=== PATIENT | female | born 1990 | race Caucasian/White ===

== ENCOUNTER 2019-03-15 08:15 | Emergency (ER) | payer OTHER, SELFPAY ==
--- NOTE | 2019-03-15 08:35 | HMH.EDGENADL ---
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 The time I documented below is in addition to time spent performing reported procedures but includes the following listed in this critical care notation. Medical Decision Making - Medical Records Medical records reviewed: Yes: I reviewed the patient's medical records. - Kenny Inquiry Pt receiving controlled substance: No Kenny was queried for this patient: No Vital Signs: 03/15/19 08:46 03/15/19 09:19 Temperature 98.6 F Temperature Source Oral Pulse Rate [Left Radial] 95 H 86 Respiratory Rate 18 Blood Pressure [Right Arm] 128/85 145/82 H Blood Pressure Mean [Right Arm] 99 103 Blood Pressure Source [Right Arm] Automatic Cuff Blood Pressure Position [Right Arm] Sitting 02 Sat by Pulse Oximetry 99 99 Oxygen Delivery Method Room Air - Lab Data Lab results reviewed: Yes: I reviewed the patient's lab results. General Adult HPI - General Stated complaint: Blackspot in Vagina and ear ache Time Seen by Provider: 03/15/19 08:35 Mode of Arrival: Ambulatory Source of Information: Patient Limitations: No Limitations - History of Present Illness HPI narrative: bad lower molar on right, ?radiating pain to ear. Also a black spot on my vagina , just noticed it. Doesn't hurt - Related Data Home Medications Medication Instructions Recorded Confirmed Levothyroxine Sodium [Synthroid 175 mcg PO DAILY 05/06/18 09/07/18 175mcg (0.175mg) tablet] Previous Rx's Medication Instructions Recorded Sulfamethoxazole/Trimethoprim 1 each PO BID #14 tablet 09/08/18 [Bactrim DS tablet] cephALEXin [Keflex 500mg Cap] 500 mg PO TID #30 cap 09/08/18 Clindamycin HCl [Clindamycin HCl 300 mg PO Q8 7 Days #21 cap 03/15/19 300mg Cap] Allergies Allergy/AdvReac Type Severity Reaction Status Date / Time codeine Allergy Verified 09/07/18 23:02 [facility] History - Hepatitis A Screen Attestation statement:: This patient has been screened for Hepatitis A risk factors. I have reviewed the patient's past medical history: Yes Medical History: Denies:: Cancer, Diabetes Mellitus Type 1, Diabetes Mellitus Type 2, MRSA Amputation: No Fractures: No - Social History Smoking Status: Current every day smoker Tobacco Type: cigarettes Alcohol Intake: never Substance Use Type: heroin ROS Obtained: Yes All systems reviewed & no additional complaints - Constitutional Constitutional: Denies system reviewed and no additional complaints, except as docu, Denies fever(s) - Eyes Eyes: Denies change in vision, Denies loss of peripheral vision, Denies eye pain - ENT Ears, Nose, Mouth, and Throat: Denies pain with swallowing, Denies sore throat - Cardiovascular Cardiovascular: Denies chest pain, Denies diaphoresis, Denies dyspnea - Respiratory Respiratory: No chest congestion, No cough, No dyspnea on exertion - Gastrointestinal Gastrointestingal: Denies: abdominal pain - Musculoskeletal Musculoskeletal: Denies joint pain, Denies joint stiffness, Denies joint swelling, Denies muscle weakness - Integumentary/Breasts Skin/Breast: Denies skin pain, Reports other (perivaginal discoloration) - Neurologic Neurologic: Denies syncope - Hematologic/Lymphatic Henatologic/Lymphatic: Denies easy bleeding, Denies easy br
--- NOTE | 2019-03-15 08:38 | ED_ITS ---
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 The time I documented below is in addition to time spent performing reported procedures but includes the following listed in this critical care notation. Medical Decision Making - Medical Records Medical records reviewed: Yes: I reviewed the patient's medical records. - Kenny Inquiry Pt receiving controlled substance: No Kenny was queried for this patient: No Vital Signs: 03/15/19 08:46 03/15/19 09:19 Temperature 98.6 F Temperature Source Oral Pulse Rate [Left Radial] 95 H 86 Respiratory Rate 18 Blood Pressure [Right Arm] 128/85 145/82 H Blood Pressure Mean [Right Arm] 99 103 Blood Pressure Source [Right Arm] Automatic Cuff Blood Pressure Position [Right Arm] Sitting 02 Sat by Pulse Oximetry 99 99 Oxygen Delivery Method Room Air - Lab Data Lab results reviewed: Yes: I reviewed the patient's lab results. General Adult HPI - General Stated complaint: Blackspot in Vagina and ear ache Time Seen by Provider: 03/15/19 08:35 Mode of Arrival: Ambulatory Source of Information: Patient Limitations: No Limitations - History of Present Illness HPI narrative: bad lower molar on right, ?radiating pain to ear. Also a black spot on my vagina , just noticed it. Doesn't hurt - Related Data Home Medications Medication Instructions Recorded Confirmed Levothyroxine Sodium [Synthroid 175 mcg PO DAILY 05/06/18 09/07/18 175mcg (0.175mg) tablet] Previous Rx's Medication Instructions Recorded Sulfamethoxazole/Trimethoprim 1 each PO BID #14 tablet 09/08/18 [Bactrim DS tablet] cephALEXin [Keflex 500mg Cap] 500 mg PO TID #30 cap 09/08/18 Clindamycin HCl [Clindamycin HCl 300 mg PO Q8 7 Days #21 cap 03/15/19 300mg Cap] Allergies Allergy/AdvReac Type Severity Reaction Status Date / Time codeine Allergy Verified 09/07/18 23:02 [facility] History - Hepatitis A Screen Attestation statement:: This patient has been screened for Hepatitis A risk factors. I have reviewed the patient's past medical history: Yes Medical History: Denies:: Cancer, Diabetes Mellitus Type 1, Diabetes Mellitus Type 2, MRSA Amputation: No Fractures: No - Social History Smoking Status: Current every day smoker Tobacco Type: cigarettes Alcohol Intake: never Substance Use Type: heroin ROS Obtained: Yes All systems reviewed & no additional complaints - Constitutional Constitutional: Denies system reviewed and no additional complaints, ex
[2019-03-15 08:46] VITALS: BP 128/85; PULSE 95; RESP 18; TEMP 37; O2SAT 99; BMI 28.3
[2019-03-15 09:19] VITALS: BP 145/82; PULSE 86; O2SAT 99
[2019-03-15 09:56] VITALS: BP 119/74; PULSE 78; RESP 16; TEMP 36.6; O2SAT 98
== END 2019-03-15 09:57 | disposition home or self-care (01) ==
PROVIDERS: Emergency Provider Emergency Medicine; PCP Pediatrics
DX: K04.7 Periapical abscess without sinus (principal); N89.8 Other specified noninflammatory disorders of vagina; F17.210 Nicotine dependence, cigarettes, uncomplicated; Z88.5 Allergy status to narcotic agent
CPT/HCPCS: 99282

== ENCOUNTER 2020-02-07 06:25 | Inpatient (IN) | payer OTHER, SELFPAY ==
[2020-02-07] VITALS (7 sets, daily range): BP systolic 105–137; BP diastolic 48–72; PULSE 83–127; RESP 16–19; TEMP 36.6–38.4; O2SAT 94–99; BMI 30.9; BMI 29.9
--- NOTE | 2020-02-07 | ECG_ITS ---
APPROVED REPORT Exam: Resting ECG HR:108 bpm ECG Measurements Heart Rate 108 AXES VA 136 P 56 QRSd 82 QRS 44 QT 330 T 35 QTc 442 <Conclusion> Sinus tachycardia Otherwise normal ECG Electronically signed by : Nate Coley, 02/07/2020 16:51:44
--- NOTE | 2020-02-07 06:30 | PC.NURSE ---
ESCORTED PATIENT TO ROOM VIA W/C. PT WITH MASK ON. STAFF WITH APPROPRIATE PPE ON AT ALL TIMES.
--- NOTE | 2020-02-07 06:44 | XR_ITS ---
PROCEDURE: XR CHEST 2V CLINICAL HISTORY: COUGH Cough, fever, body aches COMPARISON: No exams were available for comparison FINDINGS: The cardiomediastinal silhouette and pulmonary vascularity are within normal limits. The lungs are clear without infiltrates, suspicious nodules, or pleural effusions. No acute bony abnormalities. IMPRESSION: No acute findings. Dictated by: Perry Samuel MD 02/07/2020 08:10 Electronically signed by Perry Samuel MD in [place] 02/07/2020 08:10
--- NOTE | 2020-02-07 06:54 | PC.NURSE ---
URINE SENT TO LAB
--- NOTE | 2020-02-07 06:55 | PC.NURSE ---
CALL LIGHT IN PLACE TO RT GALLARDO
--- NOTE | 2020-02-07 06:57 | HMH.EDFEV ---
ED Disposition Clinical Impression: Febrile illness, acute, SIRS (systemic inflammatory response syndrome), IVDU (intravenous drug user) Disposition: Admitted as Observation Condition on Discharge: Good Referrals: Victoriano Flores [Primary Care Provider] - - Critical Care Critical Care Time: No Attestation: On 02/07/20, the high probability of a clinically significant, sudden or life threatening deterioration of the following system(s) required my full and direct attention, intervention and personal management. The time I documented below is in addition to time spent performing reported procedures but includes the following listed in this critical care notation. Medical Decision Making - Medical Records Medical records reviewed: Yes: I reviewed the patient's medical records. - Kenny Inquiry Pt receiving controlled substance: No Vital Signs: 02/07/20 06:37 02/07/20 07:28 02/07/20 08:49 Temperature 99.6 F 101.1 F H 99.2 F Temperature Source Oral Oral Oral Pulse Rate [Right Brachial] 83 127 H 105 H Respiratory Rate 19 Blood Pressure [Right Arm] 137/72 132/72 105/48 L Blood Pressure Mean [Right Arm] 93 92 67 Blood Pressure Source [Right Arm] Automatic Cuff Automatic Cuff Automatic Cuff Blood Pressure Position [Right Arm] Sitting Sitting Sitting 02 Sat by Pulse Oximetry 98 94 L 96 Oxygen Delivery Method Room Air Room Air Room Air - Lab Data Lab results reviewed: Yes: I reviewed the patient's lab results. Lab Results 02/07/20 06:35: Urine Color Yellow, Urine Appearance Clear, Urine pH 7.5, Ur Specific [place] 1.010, Urine Protein Negative, Urine Glucose (UA) Negative, Urine Ketones Negative, Urine Blood Trace-l, Urine Nitrate Negative, Urine Bilirubin Negative, Urine Urobilinogen 0.2, Ur Leukocyte Esterase Negative, Urine RBC 5-10, Urine WBC 5-10, Ur Squamous Epith Cells 10-20, Urine Bacteria Trace 02/07/20 06:35: WBC 11.1 H, RBC 4.20, Hgb 9.2 L, Hct 30.0 L, MCV 71.4 L, MCH 22.0 L, MCHC 30.8 L, RDW 15.7, Plt Count 404, MPV 7.7, Neut % (Auto) 71.8, Lymph % (Auto) 19.1, [place] % (Auto) 6.8, Eos % (Auto) 1.5, Baso % (Auto) 0.8, Neut # (Auto) 8.0 H, Lymph # (Auto) 2.1, [place] # (Auto) 0.8, Eos # (Auto) 0.2, Baso # (Auto) 0.1 02/07/20 06:35: Sodium 134 L, Potassium 4.1, Chloride 97 L, Carbon Dioxide 27, Anion Gap 14.1, BUN 8, Creatinine 0.60, Estimated Creat Clear 175, Estimated GFR 117, Est GFR ( Amer) 141, Glucose 108 H, Calcium 8.9, Total Bilirubin 0.3, AST 21, ALT 8 L, Alkaline Phosphatase 89, Total Protein 8.1, Albumin 4.0, Globulin 4.1 H, Albumin/Globulin Ratio 1.0 L 02/07/20 06:35: Lactate 0.7 02/07/20 06:35: Influenza Type A Ag Negative, Influenza Type B Ag Negative 02/07/20 06:35: Group A Strep Rapid Negative 02/07/20 06:35: ESR 117 H 02/07/20 06:35: C-Reactive Protein 114.3 H 02/07/20 06:55: Urine HCG, Qual Negative 02/07/20 06:55: Urine Opiates Screen Negative, Urine Methadone Screen Negative, Ur Barbituates Screen Negative, Ur Phencyclidine Scrn Negative, Ur Amphetamines Screen Negative, U Benzodiazepines Scrn Negative, Urine Cocaine Screen Negative, U Marijuana (THC) Screen Negative Result diagrams: 02/07/20 06:35 02/07/20 06:35 Orders (Tests/Meds): ED MEDICATIONS Generic Name Dose Route Start Last Admin Trade Name Freq PRN Reason Stop Dose Admin Ceftriaxone Sodium 2 gm/ 100 mls @ 200 mls/hr 02/07/20 08:15 02/07/20 08:56 Sodium Chloride IV 02/21/20 08:14 200 mls/hr Q24H NICHOLAS Administration Protocol Vancomycin HCl 1,500 mg/ 250 mls @ 125 mls/hr 02/07/20 09:00 Sodium Chloride IV 02/07/20 10:59 ONCE ONE Discontinued Medications Generic Name Dose Route Start Last Admin Trade Name Freq PRN Reason Stop Dose Admin Acetaminophen 975 mg 02/07/20 07:38 02/07/20 07:39 Acetaminophen 325mg Tab PO 02/07/20 07:39 975 mg ONCE ONE Administration Sodium Chloride 1,000 mls @ 999 mls/hr 02/07/20 07:00 02/07/20 06:56 Sod Chlor 0.9% 1000ml Bag IV 02/07/20 08:00 999
[2020-02-07 06:58] LABS: Appearance,Urine CLEAR (Clear); Bilirubin,Urine Negative (Negative); Blood, Urine TRACE-L (Negative); Color,Urine YELLOW (Yellow); Glucose,Urine (UA) Negative (Negative); Ketones,Urine Negative (Negative); Leukocyte Esterase,Urine Negative (Negative); Nitrate,Urine Negative (Negative); PH,Urine 7.5 (5.0-8.5); Protein,Urine Negative (Negative); Urobilinogen,Urine 0.2 EU/dl (0.2)
[2020-02-07 06:59] LABS: Microscopic, Urine URINE MICROSCOPIC (MICROSCOPIC)
[2020-02-07 07:00] LABS: Urine Pregnancy, HCG Qual. Negative (Negative)
[2020-02-07 07:00] LABS: Basophils # 0.1 K/mm3 (0-0.2); Basophils % 0.8 % (0.1-2.0); Eosinophils # 0.2 K/mm3 (0.0-0.4); Eosinophils % 1.5 % (0.1-12.0); Hemoglobin 9.2 g/dL (12.2-16.2); Lymphocytes # 2.1 K/mm3 (0.7-4.5); Lymphocytes % 19.1 % (10-50); Mean Corpuscular HGB Conc 30.8 g/dL (31.8-35.4); Mean Corpuscular Volume 71.4 fl (81-99); Mean Platelet Volume 7.7 fl (7.4-10.4); Monocytes # 0.8 K/mm3 (0.1-1.0); Monocytes % 6.8 % (1.7-9.3); Neutrophils % 71.8 % (37.0-80.0); Platelet Count 404 K/mm3 (142-424); Red Cell Distribution Width 15.7 % (11.5-17.5); White Blood Count 11.1 K/mm3 (4.8-10.8)
[2020-02-07 07:02] LABS: Chloride 97 mmol/L (98-107); Sodium 134 mmol/L (136-145)
[2020-02-07 07:03] LABS: Potassium 4.1 mmoL/L (3.5-5.1)
[2020-02-07 07:05] LABS: Alanine Aminotransferase 8 U/L (12-78); Anion Gap 14.1 mEq/L (5-15); Aspartate Amino Transferase 21 U/L (14-36); Blood Urea Nitrogen 8 mg/dl (7-17); Carbon Dioxide 27 mmol/L (22.0-30.0); Creatinine Clearance Estimated 175 mL/min (50-200); Estimated Glomerular Filt Rate 117 ml/min (>60); GFR (African American) 141 ML/MIN (>60); Lactic Acid 0.7 mmol/L (0.7-2.1)
[2020-02-07 07:06] LABS: Alkaline Phosphatase 89 U/L (38-126); Bilirubin,Total 0.3 mg/dl (0.2-1.3); Calcium 8.9 mg/dl (8.4-10.2); Globulin 4.1 g/dL (1.3-3.2); Glucose 108 mg/dl (74-100); Total Protein,Serum 8.1 g/dl (6.3-8.2)
[2020-02-07 07:11] LABS: Strep Scrn Group A (Rapid) Negative (Negative)
[2020-02-07 07:14] LABS: C-Reactive Protein 114.3 mg/L (0-4)
[2020-02-07 07:20] LABS: Bacteria,Urine Trace /lpf
--- NOTE | 2020-02-07 07:25 | PC.NURSE ---
pt c/o sob, chest discomfort under breast, generalized aches.
[2020-02-07 07:26] LABS: Erythrocyte Sedimentation Rate 117 mm/hr (0-20)
[2020-02-07 07:31] LABS: Benzodiazepines Screen,Urine Negative ng/ml (<200)
[2020-02-07 07:32] LABS: Amphetamine/Metha Screen,Urine Negative ng/ml (<1000); Barbiturates Screen,Urine Negative ng/ml (<200)
[2020-02-07 07:33] LABS: Cannabinoid Screen,Urine Negative ng/ml (<50); Methadone Screen,Urine Negative ng/ml (<300)
[2020-02-07 07:34] LABS: Cocaine Screen,Urine Negative ng/ml (<300)
[2020-02-07 07:35] LABS: Opiate Screen,Urine Negative ng/ml (<300); Phencyclidine Screen,Urine Negative ng/ml (<25)
--- NOTE | 2020-02-07 07:40 | CA_ITS ---
APPROVED REPORT EXAM: Comprehensive 2D, Doppler, and color-flow Echocardiogram Manager Personal: Lani Glaser CRT Ht: 5 ft 7 in Wt: 180lbs BSA: 1.93 BP: 137/72 mmHg Indications: IVDU, HEP C, POSSIBLE COVID, SMOKER, SOB 2D Dimensions LVOT 2.16 cm (M/F) 1.5-2.5 M-Mode Dimensions RVDd 2.62 cm (0.9-2.6) LVDd 5.13 cm (3.5-5.7) LVDs 3.92 cm (3.5-5.7) IVSd 1.32 cm (0.6-1.1) PWd 0.70 cm (0.6-1.1) EF (Teich) 46.90% FS 23.60% EDV (Teich) 125.50 mL ESV (Teich) 66.70 mL Left Ventricle Left atrium is normal size, left ventricle is normal size, there is no concentric left ventricular hypertrophy, visually estimated ejection fraction 55 to 60% with no regional wall motion abnormality. Diastolic parameters are inconclusive. Right Ventricle Right atrium is normal size, right ventricle is mildly enlarged with normal contractility. Aortic Valve Aortic valve is minimally thickened and fibrosed. There is no aortic stenosis aortic insufficiency. Mitral Valve Mitral valve is grossly normal, there is trace mitral regurgitation. Tricuspid Valve Tricuspid valve grossly normal, there is trace tricuspid regurgitation. Calculated right ventricular systolic pressure is 44 mmHg. Pulmonic Valve Pulmonic valve is poorly visualized. Great Vessels Aortic root is normal size. Pericardium No significant pericardial effusion noted. Conclusion 1. Normal left ventricular size, preserved left ventricular systolic function, visually estimated ejection fraction 55 to 60% with no regional wall motion abnormality, diastolic parameters are inconclusive. 2. Mildly enlarged right ventricle with normal contractility. 3. Trace mitral and tricuspid regurgitation, calculated right ventricular systolic pressure is 44 mmHg. Inferior vena cava is normal size with normal inspiratory collapse 4. No significant pericardial effusion noted. Electronically signed by : James Ackerman, 02/07/2020 11:39:39
--- NOTE | 2020-02-07 07:41 | PC.NURSE ---
Echo lab aware of orders. MD at bedside at this time.
--- NOTE | 2020-02-07 07:46 | PC.NURSE ---
pt informed dr bolton she hugged someone 2 weeks ago who was exposed to someone with covid
--- NOTE | 2020-02-07 07:55 | PC.NURSE ---
Pt up to restroom
--- NOTE | 2020-02-07 07:58 | PC.NURSE ---
Echo Lab at bedside
--- NOTE | 2020-02-07 08:01 | PC.NURSE ---
spoke with Sunitha in pharmacy regarding antibiotics. ok for rocephin 2gms and vanc
--- NOTE | 2020-02-07 09:01 | PC.NURSE ---
attempted to call care management x 3 for admission info. no answer
--- NOTE | 2020-02-07 09:23 | HMH.HP ---
*Admission Date: 02/07/20 *Chief complaint: fever *History of present illness: 29 yr old female presents to ed with c/o of fever. Pt with reported IV drug use in beau hands - last use 1 day ago - she reports fever and achy yolanda hands- no prod cough and no chest pain - reports contact with covid-19 - no vomiting or diarrhea - covid exposure was about 2 weeks ago and consisted of her hugging briefly a healthy person who she later found out was taking care of someone with covid -19. Pt admitted for fever of unknown origin, echo wnl, IV antibiotics and wait for blood culture results. [facility] History I have reviewed the patient's past medical history: Yes Medical History: Reports:: Hepatitis (C) Denies:: Cancer, Diabetes Mellitus Type 1, Diabetes Mellitus Type 2, Internal Pacemaker, MRSA *Have you ever received a pneumonia vaccine?: No *Have you received a flu vaccine this season?: No Other Medical History: Reports: Liver Disease Other Surgeries: Yes: Tubal Ligation. No: Pacemaker Amputation: No Fractures: No - *Social History Smoking Status: Current every day smoker Tobacco Type: e-cigarettes # Packs/Day (cigarettes): 1 Alcohol Intake: never Substance Use Type: heroin, IV drugs *Occupational Status:: other Housing: house *Travel in the last 8 weeks: None Family Hx:: Non-contributory Review of Systems - Review of Systems Review of systems:: pertinent systems reviewed and negative unless documented below - Constitutional Reports fever(s) - Eyes Denies floaters, Denies pain - ENT Denies neck pain, Denies pain with swallowing, Denies post nasal drip, Denies sore throat - *Cardiovascular Denies chest pain at rest, Denies fast heart rate - *Respiratory Denies chest congestion - *Gastrointestinal Denies bloating, Denies nausea, Denies vomiting - *Genitourinary Denies urinary urgency - *Musculoskeletal Reports joint pain - Integumentary/Breasts Denies change in hair, Denies rash - *Neurologic Denies localized weakness, Denies headache(s) - Psychiatric Denies lack of enjoyment - Endocrine Denies excessive sweating - Hematologic/Lymphatic Denies easy bruising - Allergic/Immunologic Denies itchy eyes Meds Home Medications Medication Instructions Recorded Confirmed Type Levothyroxine Sodium [Synthroid 175 mcg PO DAILY 05/06/18 02/07/20 History 175mcg (0.175mg) tablet] Allergies Allergy/AdvReac Type Severity Reaction Status Date / Time codeine Allergy Mild Difficulty Verified 05/09/19 21:17 Swallowing Exam Vital signs and Labs for Last 24 Hours: Temp Pulse Resp BP Pulse Ox 99.2 F 105 H 19 105/48 L 96 02/07/20 08:49 02/07/20 08:49 02/07/20 06:37 02/07/20 08:49 02/07/20 08:49 Laboratory Results - last 24 hr 02/07/20 06:35: Urine Color Yellow, Urine Appearance Clear, Urine pH 7.5, Ur Specific [place] 1.010, Urine Protein Negative, Urine Glucose (UA) Negative, Urine Ketones Negative, Urine Blood Trace-l, Urine Nitrate Negative, Urine Bilirubin Negative, Urine Urobilinogen 0.2, Ur Leukocyte Esterase Negative, Urine RBC 5-10, Urine WBC 5-10, Ur Squamous Epith Cells 10-20, Urine Bacteria Trace 02/07/20 06:35: WBC 11.1 H, RBC 4.20, Hgb 9.2 L, Hct 30.0 L, MCV 71.4 L, MCH 22.0 L, MCHC 30.8 L, RDW 15.7, Plt Count 404, MPV 7.7, Neut % (Auto) 71.8, Lymph % (Auto) 19.1, [place] % (Auto) 6.8, Eos % (Auto) 1.5, Baso % (Auto) 0.8, Neut # (Auto) 8.0 H, Lymph # (Auto) 2.1, [place] # (Auto) 0.8, Eos # (Auto) 0.2, Baso # (Auto) 0.1 02/07/20 06:35: Sodium 134 L, Potassium 4.1, Chloride 97 L, Carbon Dioxide 27, Anion Gap 14.1, BUN 8, Creatinine 0.60, Estimated Creat Clear 175, Estimated GFR 117, Est GFR ( Amer) 141, Glucose 108 H, Calcium 8.9, Total Bilirubin 0.3, AST 21, ALT 8 L, Alkaline Phosphatase 89, Total Protein 8.1, Albumin 4.0, Globulin 4.1 H, Albumin/Globulin Ratio 1.0 L 02/07/20 06:35: Lactate 0.7 02/07/20 06:35: Influenza Type A Ag Negative, Influenza Type B Ag Negative 02/07/20 06
--- NOTE | 2020-02-07 09:32 | PC.NURSE ---
pt c/o rt knee pain and swelling x 3 days progressively getting worse. pt denies injury, no redness noted. pt states having difficulty with weight bearing rt leg due to pain.
--- NOTE | 2020-02-07 09:52 | XR_ITS ---
PROCEDURE: XR KNEE LT 3V CLINICAL INDICATION: pain, swelling, fever The the COMPARISON: No exams were available for comparison FINDINGS: No fracture or dislocation. No lytic or blastic change. There is normal mineralization. There is minimal spurring of the medial compartment. The joint spaces are well preserved. Other findings:None. IMPRESSION: Minimal spurring medial compartment suggesting minimal osteoarthritic change Dictated by: Perry Samuel MD 02/07/2020 11:21 Electronically signed by Perry Samuel MD in [place] 02/07/2020 11:21
--- NOTE | 2020-02-07 09:55 | PC.NURSE ---
Rad at bedside
--- NOTE | 2020-02-07 09:56 | P.CONPHA_ITS ---
[facility] Pharmacy VTE Monitoring - Patient Demographics Admission date: 02/07/20 Report Date: 02/07/20 Time: 09:56 Allergies/Adverse Reactions: Patient Allergies codeine Allergy (Mild, Verified 05/09/19 21:17) Difficulty Swallowing Height: 1.63 m Weight: 81.647 kg Patient Problems: Current Active Problems IVDU (intravenous drug user) (Acute) Febrile illness, acute (Acute) SIRS (systemic inflammatory response syndrome) (Acute) - VTE Risk Labs: VTE Related Lab Results Hgb 9.2 g/dL (12.2-16.2) L 02/07/20 06:35 Hct 30.0 % (37.0-47.0) L 02/07/20 06:35 Plt Count 404 K/mm3 (142-424) 02/07/20 06:35 BUN 8 mg/dl (7-17) 02/07/20 06:35 Creatinine 0.60 mg/dl (0.52-1.04) 02/07/20 06:35 Estimated Creat Clear 175 mL/min (50-200) 02/07/20 06:35 - Prophylaxis VTE Prophylaxis Ordered?: Yes Types of VTE Prophylaxis: TEDS Knee High Location of Applied Device: Bilateral Lower Extremeties - VTE Diagnosis Confirmed Treatment or plan recommended: Continue Current Treatment
--- NOTE | 2020-02-07 10:00 | PC.NURSE ---
report called to floor
--- NOTE | 2020-02-07 10:03 | HMH.PHAINT ---
MEDICATION RECONCILIATION COMPLETED ON PATIENT USING EXTERNAL FILL HISTORY FROM PHARMACY. -HANNAH GOMES, JOELD
--- NOTE | 2020-02-07 10:51 | P.CONPHA_ITS ---
- Pharmacy Consult Date: 02/07/20 Time: 10:51 Referring provider: DR. MACHADO Reason for Consult:: VANCOMYCIN DOSING Allergies and ADEs:: Allergies Allergy/AdvReac Type Severity Reaction Status Date / Time codeine Allergy Mild Difficulty Verified 05/09/19 21:17 Swallowing Home Medications:: Home Medications Medication Instructions Recorded Confirmed Type Levothyroxine Sodium [Synthroid 175 mcg PO DAILY 05/06/18 02/07/20 History 175mcg (0.175mg) tablet] Height: 1.63 m Weight: 78.982 kg Laboratory Results:: Laboratory Results - last 24 hr 02/07/20 06:35: Urine Color Yellow, Urine Appearance Clear, Urine pH 7.5, Ur Specific [place] 1.010, Urine Protein Negative, Urine Glucose (UA) Negative, Urine Ketones Negative, Urine Blood Trace-l, Urine Nitrate Negative, Urine Bilirubin Negative, Urine Urobilinogen 0.2, Ur Leukocyte Esterase Negative, Urine RBC 5-10, Urine WBC 5-10, Ur Squamous Epith Cells 10-20, Urine Bacteria Trace 02/07/20 06:35: WBC 11.1 H, RBC 4.20, Hgb 9.2 L, Hct 30.0 L, MCV 71.4 L, MCH 22.0 L, MCHC 30.8 L, RDW 15.7, Plt Count 404, MPV 7.7, Neut % (Auto) 71.8, Lymph % (Auto) 19.1, [place] % (Auto) 6.8, Eos % (Auto) 1.5, Baso % (Auto) 0.8, Neut # (Auto) 8.0 H, Lymph # (Auto) 2.1, [place] # (Auto) 0.8, Eos # (Auto) 0.2, Baso # (Auto) 0.1 02/07/20 06:35: Sodium 134 L, Potassium 4.1, Chloride 97 L, Carbon Dioxide 27, Anion Gap 14.1, BUN 8, Creatinine 0.60, Estimated Creat Clear 175, Estimated GFR 117, Est GFR ( Amer) 141, Glucose 108 H, Calcium 8.9, Total Bilirubin 0.3, AST 21, ALT 8 L, Alkaline Phosphatase 89, Total Protein 8.1, Albumin 4.0, Globulin 4.1 H, Albumin/Globulin Ratio 1.0 L 02/07/20 06:35: Lactate 0.7 02/07/20 06:35: Influenza Type A Ag Negative, Influenza Type B Ag Negative 02/07/20 06:35: Group A Strep Rapid Negative 02/07/20 06:35: ESR 117 H 02/07/20 06:35: C-Reactive Protein 114.3 H 02/07/20 06:55: Urine HCG, Qual Negative 02/07/20 06:55: Urine Opiates Screen Negative, Urine Methadone Screen Negative, Ur Barbituates Screen Negative, Ur Phencyclidine Scrn Negative, Ur Amphetamines Screen Negative, U Benzodiazepines Scrn Negative, Urine Cocaine Screen Negative, U Marijuana (THC) Screen Negative Medical History: Reports:: Hepatitis (C) Denies:: Cancer, Diabetes Mellitus Type 1, Diabetes Mellitus Type 2, Internal Pacemaker, MRSA Assessment and Plan (1) Febrile illness, acute Current visit: Yes Status: Acute Category: Medical Code(s): R50.9 - Fever, unspecified (2) IVDU (intravenous drug user) Current visit: Yes Status: Acute Category: Social Hx Code(s): F19.90 - Other psychoactive substance use, unspecified, uncomplicated (3) SIRS (systemic inflammatory response syndrome) Current visit: Yes Status: Acute Category: Medical Code(s): R65.10 - Systemic inflammatory response syndrome (SIRS) of non-infectious origin without acute organ dysfunction - Assessment and plan all Dx Assessment and Plan for all problems:: BASED ON PATIENT FACTORS, RECOMMEND VANCOMYCIN 1500 MG IV Q12H. PHARMACY WILL FOLLOW DAILY AND ADJUST APPROPRIATE.
--- NOTE | 2020-02-07 19:05 | PC.NURSE ---
PATIENT A &O X4, LUNGS CLEAR, PULSES EQUAL. PATIENT HAS SEVERAL TRACK GARZA NOTED ON BILATERAL HANDS, BILATERAL FOREARMS AND ONE NOTED ON ANTERIOR OF LEFT FOOT. PATIENT HAS EDEMA NOTED UPON THE LEFT KNEE. PATIENT'S IV CONTINUED TO BEEPED. THIS RN ASSESSED LINE, BLOOD NOTED IN TUBING, THIS RN WAS UNABLE TO FLUSH IV, UPON REMOVAL OF IV, CATHETER WAS BENT. THIS PATIENT HAD 6 IV ATTEMPTS FROM MULTIPLE RNS. UNABLE TO OBTAIN IV ACCESS. WILL PASS ALONG TO NEXT RN.
[2020-02-08] VITALS (14 sets, daily range): BP systolic 115–140; BP diastolic 55–79; PULSE 89–111; RESP 16–20; TEMP 36.6–37.1; O2SAT 95–100; BMI 30.1
--- NOTE | 2020-02-08 03:06 | PC.NURSE ---
A&OX3. PERRLA. DIRECTOR REGULATORY AFFAIRS EQUAL BILAT. LUNGS CLEAR T/O AUSCULTATION. TOLERATED RA WELL. ABDOMEN NONDISTENDED, ACTIVE BOWEL SOUNDS IN ALL QUADS, SOFT AND TENDERNESS NOTED TO LUQ PER PALPATION. PT REPORTS NOT HAVING A BM FOR 10 DAYS AND REQUESTED A SUPPOSITORY AT BEGINNING OF SHIFT, PT STATED IT HURTS TO SIT BECAUSE IT IS HURTING MY RECTUM, MD SALES APPLICATIONS ENGINEER MADE AWARE AND ORDERED A ONE TIME DOSE OF DULCOLAX SUPPOSITORY. ADMINISTERED SUPPOSITORY, NO BM NOTED THIS FAR IN THE SHIFT. PULSES +2, CAP REFILL <3 SEC. SCATTERED SCABS NOTED ON SKIN ON ASSESSMENT. INDEPENDENT WITH ADLS. VSS. WILL CONTINUE TO MONITOR.
[2020-02-08 06:31] LABS: Basophils % 0.3 % (0.1-2.0); Eosinophils # 0.2 K/mm3 (0.0-0.4); Eosinophils % 2.7 % (0.1-12.0); Hematocrit 25.7 % (37.0-47.0); Lymphocytes # 2.1 K/mm3 (0.7-4.5); Lymphocytes % 30.1 % (10-50); Mean Corpuscular Hemoglobin 21.8 pg (27.0-31.2); Mean Corpuscular Volume 72.6 fl (81-99); Mean Platelet Volume 7.3 fl (7.4-10.4); Monocytes # 0.6 K/mm3 (0.1-1.0); Monocytes % 7.8 % (1.7-9.3); Neutrophils # 4.2 K/mm3 (1.8-7.8); Platelet Count 315 K/mm3 (142-424); Red Blood Count 3.54 M/mm3 (4.20-5.40); Red Cell Distribution Width 15.4 % (11.5-17.5); White Blood Count 7.1 K/mm3 (4.8-10.8)
--- NOTE | 2020-02-08 06:31 | PC.NURSE ---
ON REASSESSMENT OF ADMINISTRATION OF SUPPOSITORY, PT REPORTS HAVING A MODERATE BROWN STOOL. PT STATED IT WAS HARD AT FIRST BUT THEN IT ENDED UP BEING SOFT TOWARDS THE END. PT REPORTS FEELING RELIEVED.
[2020-02-08 06:34] LABS: Hemoglobin 7.7 g/dL (12.2-16.2)
[2020-02-08 06:43] LABS: Chloride 105 mmol/L (98-107); Sodium 135 mmol/L (136-145)
[2020-02-08 06:44] LABS: Potassium 3.9 mmoL/L (3.5-5.1)
[2020-02-08 06:46] LABS: Blood Urea Nitrogen 5 mg/dl (7-17); Creatinine Clearance Estimated 206 mL/min (50-200); Estimated Glomerular Filt Rate 144 ml/min (>60); GFR (African American) 174 ML/MIN (>60)
[2020-02-08 06:47] LABS: Anion Gap 8.9 mEq/L (5-15); Calcium 8.1 mg/dl (8.4-10.2); Carbon Dioxide 25 mmol/L (22.0-30.0); Glucose 87 mg/dl (74-100); Magnesium 1.8 mg/dl (1.6-2.3)
--- NOTE | 2020-02-08 08:54 | P.PN_ITS ---
Internal Medicine - PN: Subj *Date: 02/08/20 *Time: 08:54 Interval history: doing better but has anemia - has hx of low iron anemia in past - transfuse today- no fever - discussed rehab with pt Exam Vital signs and Labs for Last 24 Hours: Temp Pulse Resp BP Pulse Ox 98.7 F 111 H 16 138/70 95 02/08/20 08:00 02/08/20 08:00 02/08/20 08:00 02/08/20 08:00 02/08/20 08:00 Laboratory Results - last 24 hr 02/08/20 06:10: WBC 7.1 D, RBC 3.54 L, Hgb 7.7 L*, Hct 25.7 L, MCV 72.6 L, MCH 21.8 L, MCHC 30.0 L, RDW 15.4, Plt Count 315, MPV 7.3 L, Neut % (Auto) 59.0, Lymph % (Auto) 30.1, Archuleta % (Auto) 7.8, Eos % (Auto) 2.7, Baso % (Auto) 0.3, Neut # (Auto) 4.2, Lymph # (Auto) 2.1, Archuleta # (Auto) 0.6, Eos # (Auto) 0.2, Baso # (Auto) 0.0 02/08/20 06:10: Sodium 135 L, Potassium 3.9, Chloride 105, Carbon Dioxide 25, Anion Gap 8.9, BUN 5 L D, Creatinine 0.50 L, Estimated Creat Clear 206, Estimated GFR 144, Est GFR ( Amer) 174 D, Glucose 87, Calcium 8.1 L, Magnesium 1.8 02/08/20 07:30: Blood Type O Negative, Antibody Screen Negative, Crossmatch (AHG) See Detail I & O for Last 24 hours: Intake & Output 02/05/20 02/06/20 02/07/20 02/08/20 11:59 11:59 11:59 11:59 Intake Total 2191 / 2191 Output Total 500 / 500 Balance 1691 / 1691 Weight 174 lb 2 oz 176 lb 9.6 oz Microbiology Reports for the Last 24 Hours: Microbiology 02/07/20 06:35 Throat Group A Streptococcus Screen (TAMMY) - Final Negative for Group A Streptococcus. - Constitutional no acute distress - *Routine HEENT Exam Head: Present: normocephalic Eye: Present: EOMI, PERRL ENT: Present: mucous membranes moist - *Routine Neck Exam Present: supple - *Routine Respiratory Exam Present: CTA bilaterally - *Routine Cardiovascular Exam Present: RRR. Absent: murmur, rubs - *Routine Abdominal Exam Present: soft - *Routine Extremities Exam Absent: calf tenderness - *Routine Skin Exam Present: intact - *Routine Neurological Exam Present: alert, CN II-XII intact - Routine Psychiatric Exam Present: normal affect Assessment and Plan (1) Febrile illness, acute Current visit: Yes Status: Acute Category: Medical Code(s): R50.9 - Fever, unspecified (2) IVDU (intravenous drug user) Current visit: Yes Status: Acute Category: Social Hx Code(s): F19.90 - Other psychoactive substance use, unspecified, uncomplicated (3) SIRS (systemic inflammatory response syndrome) Current visit: Yes Status: Acute Category: Medical Code(s): R65.10 - Systemic inflammatory response syndrome (SIRS) of non-infectious origin without acute organ dysfunction (4) Anemia Current visit: No Status: Acute Qualifiers: Anemia type: unspecified type Qualified Code(s): D64.9 - Anemia, unspecified Category: Medical Code(s): D64.9 - Anemia, unspecified
[2020-02-08 12:47] LABS: Hematocrit 26.9 % (37.0-47.0); Hemoglobin 8.3 g/dL (12.2-16.2)
--- NOTE | 2020-02-08 17:29 | PC.NURSE ---
PT IS ALERT AND ORIENTED X4. NO ACUTE CHANGES THIS SHIFT. PT HAS BEEN UP TO CHAIR AND AMBULATES INDEPENDENTLY IN ROOM AND TO BATHROOM. BLOOD TRANSFUSION COMPLETED. NO ISSUES NOTED. TYLENOL ADMINISTERED PRN X ONCE FOR HEADACHE THIS AM. 3 REPORTED BM. NO COMPLAINTS VOICED. VSS. SAFETY MEASURES IN PLACE. WILL CONTINUE TO MONITOR
[2020-02-08 22:41] LABS: Vancomycin,Trough 6.4 ug/mL (5.0-10.0)
[2020-02-09 04:00] VITALS: BP 135/81; PULSE 96; RESP 16; TEMP 36.6; O2SAT 99
[2020-02-09 05:00] VITALS: BMI 30.1
--- NOTE | 2020-02-09 05:45 | PC.NURSE ---
A&OX3. PERRLA, FIRE SPRINKLER INSPECTOR EQUAL BILAT. LUNGS CLEAR T/O AUSCULTATION. TOLERATED RA WELL. PULSES +2, CAP REFILL <3 SEC. ABDOMEN NONDISTENDED, ACTIVE BOWEL SOUNDS PER AUSCULTATION, SOFT AND NONTENDER PER PALPATION. PT REPORTED A COUPLE OF BM'S DURING THE DAY. LEFT KNEE NOTED WITH MILD SWELLING IN COMPARISON WITH THE RIGHT KNEE. PT REPORTS IT IS TENDER PER PALPATION. NO REDNESS NOTED TO LEFT KNEE. LIMPING NOTED AT TIMES WITH AMBULATION. AT BEGINNING OF SHIFT PT WAS NOTED WITH VAPE PEN CHARGING AT BEDSIDE. EDUCATED PT THAT WAS NOT ALLOWED TO BE USED IN THIS FACILIY BUT WE COULD PROVIDE A NICOTINE PATCH. PT AGREED TO USING THE NICOTINE PATCH, APOLOGIZED ABOUT THE VAPE PEN AND STATED I HAD NO IDEA. PT PROMISED STAFF THAT SHE WOULD NOT USE THE VAPE PEN AND STATED IT IS ANYWAY. WILL CONTINUE TO MONITOR, AND PASS ALONG TO DAY SHIFT TO MONITOR FOR ACTIVITY/BEHAVIOR. REMAINED AFEBRILE THIS SHIFT. INDEPENDENT WITH ADLS. VSS. WILL CONTINUE TO MONITOR.
[2020-02-09 08:00] VITALS: BP 136/75; PULSE 92; RESP 16; TEMP 36.6; O2SAT 100
--- NOTE | 2020-02-09 08:35 | HMH.DCSUM ---
General - General Admission date:: 02/07/20 Discharge date: 02/09/20 HPI HPI: 29 yr old female presents to ed with c/o of fever. Pt with reported IV drug use in beau hands - last use 1 day ago - she reports fever and achy yolanda hands- no prod cough and no chest pain - reports contact with covid-19 - no vomiting or diarrhea - covid exposure was about 2 weeks ago and consisted of her hugging briefly a healthy person who she later found out was taking care of someone with covid -19. Pt admitted for fever of unknown origin, echo wnl, IV antibiotics and wait for blood culture results. Hospital Course Hospital Course: pt has did well with her admit with no fever and has responded to antibiotics with neg culture - she was anemia and feels better after transfusion - we discussed drug use and she plans to see pcp about this - pt is active and has justo diet Objective Vital signs: Temp Pulse Resp BP Pulse Ox 97.9 F 96 H 16 135/81 99 02/09/20 04:00 02/09/20 04:00 02/09/20 04:00 02/09/20 04:00 02/09/20 04:00 no acute distress, obese - *Routine HEENT Exam Head: Present: normocephalic Eye: Present: EOMI, PERRL ENT: Present: mucous membranes dry - *Routine Neck Exam Present: supple. Absent: JVD - *Routine Respiratory Exam Present: CTA bilaterally - *Routine Cardiovascular Exam Present: RRR - *Routine Abdominal Exam Present: soft - *Routine Extremities Exam Present: pulses intact - *Routine Skin Exam Present: intact - *Routine Neurological Exam Present: alert, oriented X3, CN II-XII intact - Routine Psychiatric Exam Present: normal affect Results Labs on day of discharge: Labs from last 24 hours 02/08/20 02/08/20 02/08/20 21:57 12:40 08:35 Hgb 8.3 L Hct 26.9 L Ferritin 16.0 Vancomycin Trough 6.4 Blood Type Blood Type Confirm Antibody Screen Crossmatch (AHG) 02/08/20 02/08/20 08:10 07:30 Hgb Hct Ferritin Vancomycin Trough Blood Type O Negative Blood Type Confirm O Negative Antibody Screen Negative Crossmatch ([facility]) See Detail Preliminary micro results at discharge 02/07/20 06:35 Blood Culture - Preliminary Blood NO GROWTH AFTER 48 HOURS 02/07/20 06:35 Blood Culture - Preliminary Blood NO GROWTH AFTER 48 HOURS DS: Diagnosis - Discharge Diagnosis (1) Febrile illness, acute Status: Acute (2) IVDU (intravenous drug user) Status: Acute (3) SIRS (systemic inflammatory response syndrome) Status: Acute (4) Anemia Status: Acute (5) Obesity (BMI 30.0-34.9) Status: Acute (6) Hypothyroidism (acquired) Status: Acute Discharge Plan - Patient Discharge Instructions ACTIVITY: Continue current activity DIET: continue same diet Patient Instructions: Fever of Unknown Origin - Follow up Plan Disposition: Home, Self-Fci Medications: Home Medications Medication Instructions Recorded Confirmed Type Levothyroxine Sodium [Synthroid 175 mcg PO DAILY 05/06/18 02/07/20 History 175mcg (0.175mg) tablet] cephALEXin [Keflex 500mg Cap] 500 mg PO TID #30 cap 02/09/20 Rx clindamycin HCL [Clindamycin HCl 300 mg PO Q8 #30 cap 02/09/20 Rx 300mg Cap] Prescriptions/Medication Reconciliation: New clindamycin HCL [Clindamycin HCl 300mg Cap] 300 mg PO Q8 #30 cap cephALEXin [Keflex 500mg Cap] 500 mg PO TID #30 cap Continued Levothyroxine Sodium [Synthroid 175mcg (0.175mg) tablet] 175 mcg PO DAILY - Problem Reconciliation Problems Reviewed?: Yes
--- NOTE | 2020-02-09 09:03 | HMH.PHAINT ---
DISCHARGE COUNSELING COMPLETED. PATIENT VERBALIZED UNDERSTANDING AND DID NOT HAVE ANY QUESTIONS.
--- NOTE | 2020-02-09 11:00 | HMH.PHACONS ---
- Pharmacy Consult Date: 02/09/20 Time: 11:00 Referring provider: DR. MACHADO Reason for Consult:: VANCOMYCIN TROUGH LEVEL Allergies and ADEs:: Allergies Allergy/AdvReac Type Severity Reaction Status Date / Time codeine Allergy Mild Difficulty Verified 05/09/19 21:17 Swallowing Home Medications:: Home Medications Medication Instructions Recorded Confirmed Type Levothyroxine Sodium [Synthroid 175 mcg PO DAILY 05/06/18 02/07/20 History 175mcg (0.175mg) tablet] cephALEXin [Keflex 500mg Cap] 500 mg PO TID #30 cap 02/09/20 Rx clindamycin HCL [Clindamycin HCl 300 mg PO Q8 #30 cap 02/09/20 Rx 300mg Cap] Height: 1.63 m Weight: 80.1 kg Laboratory Results:: Laboratory Results - last 24 hr 02/08/20 07:30: Crossmatch (AHG) See Detail 02/08/20 12:40: Hgb 8.3 L, Hct 26.9 L 02/08/20 21:57: Vancomycin Trough 6.4 Medical History: Reports:: Hepatitis (C) Denies:: Cancer, Diabetes Mellitus Type 1, Diabetes Mellitus Type 2, Internal Pacemaker, MRSA Assessment and Plan (1) Febrile illness, acute Status: Acute Category: Medical Code(s): R50.9 - Fever, unspecified (2) IVDU (intravenous drug user) Status: Acute Category: Social Hx Code(s): F19.90 - Other psychoactive substance use, unspecified, uncomplicated (3) SIRS (systemic inflammatory response syndrome) Status: Acute Category: Medical Code(s): R65.10 - Systemic inflammatory response syndrome (SIRS) of non-infectious origin without acute organ dysfunction (4) Anemia Status: Acute Qualifiers: Anemia type: unspecified type Qualified Code(s): D64.9 - Anemia, unspecified Category: Medical Code(s): D64.9 - Anemia, unspecified (5) Obesity (BMI 30.0-34.9) Status: Acute Category: Medical Code(s): E66.9 - Obesity, unspecified (6) Hypothyroidism (acquired) Status: Acute Category: Medical Code(s): E03.9 - Hypothyroidism, unspecified - Assessment and plan all Dx Assessment and Plan for all problems:: BASED ON VANCOMYCIN TROUGH LEVEL, VANCOMYCIN WAS CHANGED TO 1500 MG IV Q8H LAST NIGHT.
[2020-02-10 08:04] LABS: Peripheral Smear Review Scanned Result
[2020-02-10 08:14] LABS: Iron 16 ug/dL (27-159); UIBC 237 ug/dL (131-425)
[2020-02-10 08:41] LABS: Iron Saturation 6 % (15-55)
== END 2020-02-09 10:07 | disposition home or self-care (01) | DRG 864 ==
LOC: ER 06:40 → 2ND 09:10
PROVIDERS: Admitting Provider Emergency Medicine; Emergency Provider Emergency Medicine; PCP Pediatrics; Visit Provider Emergency Medicine
DX: R50.9 Fever, unspecified (principal); R65.10 Systemic inflammatory response syndrome (SIRS) of non-infectious origin without acute organ dysfunction; F11.20 Opioid dependence, uncomplicated; E03.9 Hypothyroidism, unspecified; D64.9 Anemia, unspecified; F17.290 Nicotine dependence, other tobacco product, uncomplicated; B19.20 Unspecified viral hepatitis C without hepatic coma
CPT/HCPCS: 36415; 71046; 73562; 80048; 80053; 80202; 80305; 81001; 81025; 82728; 83540; 83550; 83605; 83735; 85014; 85018; 85025; 85651; 86140; 86850; 87040; 87275; 87276; 87430; 93005; 93306; 96365; 96367; 96375; 99285; J2405; J3370; P9016

== ENCOUNTER 2020-07-03 08:09 | Emergency (ER) | payer OTHER, SELFPAY ==
[2020-07-03 08:18] VITALS: BP 130/58; PULSE 95; RESP 17; TEMP 37; O2SAT 100; BMI 28.3
--- NOTE | 2020-07-03 09:07 | HMH.EDGENADL ---
ED Disposition Clinical Impression: Viral exanthem, Urticaria Disposition: Home, Self-Care Condition on Discharge: Good Instructions: DI for Skin Abscess Referrals: Victoriano Flores [Primary Care Provider] - - Critical Care Critical Care Time: No Attestation: On 07/03/20, the high probability of a clinically significant, sudden or life threatening deterioration of the following system(s) required my full and direct attention, intervention and personal management. The time I documented below is in addition to time spent performing reported procedures but includes the following listed in this critical care notation. Medical Decision Making - Medical Records Medical records reviewed: Yes: I reviewed the patient's medical records. - Kenny Inquiry Pt receiving controlled substance: No Vital Signs: 07/03/20 08:18 Temperature 98.6 F Temperature Source Oral Pulse Rate [Right Radial] 95 H Respiratory Rate 17 Blood Pressure [Right Arm] 130/58 L Blood Pressure Mean [Right Arm] 82 02 Sat by Pulse Oximetry 100 Oxygen Delivery Method Room Air - Lab Data Lab results reviewed: Yes: I reviewed the patient's lab results. General Adult HPI - General Chief complaint: Skin/Abscess/Foreign Body Stated complaint: sore throat chocked on taco 07/02 Time Seen by Provider: 07/03/20 09:07 Mode of Arrival: Ambulatory Limitations: No Limitations Description of Symptoms (Recalled from ER Triage Doc. by RN): pt reports that last night she choked on a taco and has been having throat pain that radiates down into her stomach. pt states she is concerned that she ripped something. pt states she has been able to eat and drink and some of it is staying down. - History of Present Illness HPI narrative: A pleasant 29-year-old female presents the ED with a sensation that she has something stuck in her throat. She states last night she was eating some tacos hard shell tacos and when she swallowed 1 of the bites of the second taco that she was consuming she felt like some of the talker was still stuck in her throat. Patient denies any acute nausea or vomiting. Patient denies any other acute symptoms. Patient states that she has been able drink some fluids with no episodes of emesis. - Related Data Home Medications Medication Instructions Recorded Confirmed Levothyroxine Sodium [Synthroid 175 mcg PO DAILY 05/06/18 02/07/20 175mcg (0.175mg) tablet] Previous Rx's Medication Instructions Recorded cephALEXin [Keflex 500mg Cap] 500 mg PO TID #30 cap 02/09/20 clindamycin HCL [Clindamycin HCl 300 mg PO Q8 #30 cap 02/09/20 300mg Cap] Allergies Allergy/AdvReac Type Severity Reaction Status Date / Time codeine Allergy Mild Difficulty Verified 07/03/20 08:[address] [facility] History - Hepatitis A Screen Drug use history?: Yes High risk sexual behaviors?: No History of sexually transmitted infection?: No Currently employed?: No Childcare worker?: No Do you have indoor plumbing?: Yes Do you have electricity?: Yes Attestation statement:: This patient has been screened for Hepatitis A risk factors. I have reviewed the patient's past medical history: Yes Medical History: Reports:: Hepatitis (C) Denies:: Cancer, Diabetes Mellitus Type 1, Diabetes Mellitus Type 2, Internal Pacemaker, MRSA Other Medical History: Reports: Hypothyroidism, Liver Disease Other Surgeries: Yes: Tubal Ligation. No: Pacemaker Amputation: No Fractures: No - Social History Smoking Status: Current every day smoker Tobacco Type: cigarettes # Packs/Day (cigarettes): 1 Alcohol Intake: never Substance Use Type: heroin, IV drugs Last Used Substance: days (ago) Occupational Status: unemployed Housing: house Household Members: significant other Family Hx:: Cancer, Diabetes, Heart Attack, Hypertension, Substance abuse, Mental illness ROS Obtained: Yes All systems reviewed & no additional complaints - Constitutional Constit
--- NOTE | 2020-07-03 09:15 | PC.NURSE ---
pt tolerated po challenge well with no nausea/vomiting. dr lino made aware.
[2020-07-03 09:16] VITALS: BP 119/76; PULSE 84; RESP 16; TEMP 37; O2SAT 99
== END 2020-07-03 09:23 | disposition home or self-care (01) ==
PROVIDERS: Emergency Provider Family Medicine; PCP Pediatrics
DX: B09 Unspecified viral infection characterized by skin and mucous membrane lesions (principal); L50.9 Urticaria, unspecified; E03.9 Hypothyroidism, unspecified; F17.210 Nicotine dependence, cigarettes, uncomplicated; Z88.5 Allergy status to narcotic agent
CPT/HCPCS: 99281